=== PATIENT | male | born 1980 | race Caucasian/White ===

== ENCOUNTER 2017-10-02 01:51 | Emergency (ER) | payer OTHER ==
[~2017-10-02 01:51] MED LIST: NORCO 10-325 T1 EACH PO
== END 2017-10-02 02:52 | disposition home or self-care (01) ==
LOC: ED 01:51
PROC: 0HQ0XZZ Repair Scalp Skin, External Approach (ICD-10-PCS; principal; 2017-10-02)
DX: S01.01XA Laceration without foreign body of scalp, initial encounter (principal); Z88.2 Allergy status to sulfonamides; X58.XXXA Exposure to other specified factors, initial encounter
CPT/HCPCS: 12002; 99282

== ENCOUNTER 2021-10-23 09:35 | Emergency (ER) | payer OTHER ==
[~2021-10-23] VITALS: Ht 182.9 cm; Wt 81.7 kg
== END 2021-10-23 11:28 | disposition home or self-care (01) ==
LOC: ED 09:35
DX: S62.324A Displaced fracture of shaft of fourth metacarpal bone, right hand, initial encounter for closed fracture (principal); Z88.2 Allergy status to sulfonamides; W22.8XXA Striking against or struck by other objects, initial encounter
CPT/HCPCS: 29125; 73130; 99283-25

== ENCOUNTER 2021-10-30 06:25 | Day surgery (SDC) | payer OTHER ==
[~2021-10-30] VITALS: Ht 182.9 cm; Wt 84.0 kg
--- NOTE | ~2021-10-30 | OR ---
[facility] [address] [place] [place] [address] [place] DATE OF OPERATION: 10/30/2021 SURGEON: Bran Rosenberg MD PREOPERATIVE DIAGNOSIS: Right ring metacarpal fracture, displaced. POSTOPERATIVE DIAGNOSIS: Right ring metacarpal fracture, displaced. PROCEDURE PERFORMED: Open reduction and internal fixation of right ring metacarpal. RADIOGRAPHIC TECHNOLOGIST: None. ANESTHESIA: General. BLOOD LOSS: None. TOURNIQUET TIME: 40 minutes. IMPLANTS: Synthes 6-hole 1.5 mm plate with 7 screws. 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 He was immediately seen in the ER where radiographs showed a displaced metacarpal fracture. He was then seen in clinic and risks and benefits of operative treatment were discussed with him and he elected to proceed. DESCRIPTION OF PROCEDURE: Once consent was obtained, he was taken to the operating room. After adequate anesthesia, he was placed on the operating room table. A hand table was placed. The arm was then prepped and draped in a standard sterile fashion up to a proximal arm tourniquet. The arm was then exsanguinated using Esmarch bandage and tourniquet PATIENT NAME: KWABENA ZHENG OPERATIVE REPORT DATE OF : 80 REPORT #: [id number] PHYSICIAN: BRAN ROSENBERG MD PCP: NO PRIMARY CARE PHYSICIAN REPORT IS CONFIDENTIAL AND NOT TO BE RELEASED WITHOUT AUTHORIZATION [facility] [address] [place], [place] [address] Draft inflated to 200 mmHg. Standard dorsal approach was centered over the fracture, carried through the skin and subcutaneous tissue. The extensor tendon was carefully retracted and preserved. The periosteum was incised longitudinally and elevated off the metacarpal medially and laterally. The fracture was then distracted and cleaned of debris. We then reduced the fracture and clamped it with a small clamp. This was checked using image intensifier and found to be in good position. A single screw was placed from anterior to posterior in a standard AO lag technique. The 6-hole plate was then centered over the fracture on the dorsolateral aspect of the metacarpal and two screws were placed to secure the plate. Again, it was checked using image intensifier and found to be in good position. The remaining screw holes were drilled and appropriate length screws were placed. At the end, we checked the plate placement, fracture reduction and screw lengths, all of which were found to be satisfactory. The wound was copiously irrigated with normal saline. The periosteum was closed over the plate and under the tendon using 3-0 Monocryl, the subcutaneous tissue with 3-0 Monocryl and the skin with a running 3-0 nylon. The wound was then dressed with an Allevyn dressing, sterile cast padding and an ulnar gutter splint. Once this was accomplished, he was awakened, taken to recovery room in satisfactory condition. All sponge, needle, and instrument counts were correct. Bran Rosenberg MD BA/MODL /[id number] Copies: ~ PATIENT NAME: KWABENA ZHENG OPERATIVE REPORT DATE OF : 80 REPORT #: [id number] PHYSICIAN: BRAN ROSENBERG MD PCP: NO PRIMARY CARE PHYSICIAN REPORT IS CONFIDENTIAL AND NOT TO BE RELEASED WITHOUT AUTHORIZATION
[2021-10-30] MEDS ORDERED: DICLOFENAC SODI75 MG PO (09:05)
[2021-10-30] MEDS ORDERED: HYDROCODON-ACE1 EA10 PO (09:05)
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
--- NOTE | 2021-10-30 10:10 | NUR ---
PATIENT TO DAYSURGERY FROM PACU, PATIENT AWAKE IN BED. NERVE BLOCK PROVIDED WHILE PATIENT WAS IN PACU. PATIENT REPORTS PAIN 0/10 ON PAIN SCALE, DRESSING TO RIGHT HAND C/D/I. STRONG RADIAL PULSES, WARM FINGERS. ICE IN PLACE. LUNCH ORDERED. PATIENT AMBULATED TO BATHROOM, VOIDED 400 ML OF CLEAR YELLOW URINE.
--- NOTE | 2021-10-30 11:00 | NUR ---
PATIENT HAD EMESIS, WITH COMPLAINTS OF NAUSEA. CALL TO JORDON TREVINO, NEW ORDERS. ADMINISTERED INAPSINE 0.625 IV, PATIENT REPORTED FEELS BETTER AFTER HAVING EMESIS AND MEDICATION MAY HAVE HELPED. DENIES WANTING ANY OTHER MEDICATION TO TREAT NAUSEA. PATIENT STATES " I WANT TO JUST GO HOME AND SLEEP THIS OFF". VSS WNL. DRESSING TO RIGHT HAND C/D/I, ICE IN PLACE. PROVIDED HOME CARE INSTRUCTION AND DISCUSSED S/S OF INFECTION. PATIENT AND GIRLFRIEND VERBALIZED UNDERSTANDING. PATIENT NOW GETTING DRESSED WILL CALL WHEN READY FOR DC PAPERWORK.
== END 2021-10-30 11:35 | disposition home or self-care (01) ==
LOC: DS 06:25
PROVIDERS: ATTEND Specialist
PROC: 0PSP04Z Reposition Right Metacarpal with Internal Fixation Device, Open Approach (ICD-10-PCS; principal; 2021-10-30 07:45)
DX: S62.324A Displaced fracture of shaft of fourth metacarpal bone, right hand, initial encounter for closed fracture (principal); W20.8XXA Other cause of strike by thrown, projected or falling object, initial encounter; G89.18 Other acute postprocedural pain
CPT/HCPCS: 73130; 76942; C1713; J0131; J0690; J1100; J1790; J1885; J2001; J2405; J2704; J2795; J3010; J7121